=== PATIENT | female | born 1975 | race American Indian/Alaskan Native ===

== ENCOUNTER 2018-01-06 13:23 | Inpatient (IN) | payer MEDICARE, OTHER ==
[2018-01-06 16:10] VITALS: BMI 27.0
[2018-01-06 18:53] LABS: HEMOGLOBIN 10.4 g/dL (12.0-16.0); MEAN CELL VOLUME 96.4 fl (81.0-99.0); MEAN CORPUSCULAR HEMOGLOBIN 32.4 pg (27.0-31.0); MEAN CORPUSCULAR HGB CONC 33.6 g/dL (33.0-37.0); RBC 3.21 Mil/uL (3.80-5.20); RED CELL DISTRIBUTION WIDTH 12.4 % (11.5-14.5); WHITE BLOOD COUNT 10.4 K/uL (4.8-10.8)
[2018-01-06] MEDS ORDERED: Piperacillin/Tazobact 3.375 GM in Sodium Chloride 0.9% 100 ML IVPB SCH (19:00)
[2018-01-06 19:12] LABS: ALBUMIN 3.1 g/dL (3.5-5.0); ALT/SGPT 26 U/L (9-52); AST/SGOT 39 U/L (14-36); BLOOD UREA NITROGEN 10 mg/dl (7-17); CALCIUM 8.9 mg/dL (8.4-10.2); GFR AFRICAN-AMERICAN > 60; GFR NON-AFRICAN AMERICAN > 60
[2018-01-06] MEDS: Artificial Tears Opht Soln OU SCH (21:18)
[2018-01-06] MEDS: Piperacillin/Tazobact 3.375 GM in Sodium Chloride 0.9% 100 ML IVPB SCH (21:37)
[2018-01-06] MEDS: Insulin Lispro (humaLOG) 100 Units/ml Inj SC SCH (21:51)
[2018-01-06] MEDS: Insulin Detemir 100 Units/ml Inj SC SCH (21:52)
[2018-01-06] MEDS ORDERED: Piperacillin/Tazobact 3.375 gm Inj IVPB SCH (22:00)
[2018-01-06] MEDS ORDERED: Patient's Own Med (Insulin Glargine, Recombina [Lantus] 50 UNIT) SC SCH (22:00)
[2018-01-07] MEDS: Piperacillin/Tazobact 3.375 GM in Sodium Chloride 0.9% 100 ML IVPB SCH ×3 (06:12→21:52)
[2018-01-07] MEDS: Insulin Lispro (humaLOG) 100 Units/ml Inj SC SCH ×4 (07:08→23:11)
[2018-01-07] MEDS: Insulin Lispro Mix 75/25 100 units/ml (HumaLog) 10ml SC SCH ×2 (08:45→16:38)
[2018-01-07] MEDS: Artificial Tears Opht Soln OU SCH ×2 (08:45→21:48)
[2018-01-07] MEDS: Enoxaparin 40 mg Syringe SC SCH (08:46)
[2018-01-07] MEDS: Bacitracin OINT 15GM TOP PRN (08:46)
[2018-01-07] MEDS ORDERED: Saccharomyces Boulardi 250 mg Cap PO SCH (09:00)
--- NOTE | 2018-01-07 12:08 | CP.PCM.CON ---
History of Present Illness - History of Present Illness History of Present Illness: Pt is a 42 year old female admitted to [facility] and referred to the database report writer for evaluation. med history postive for a recent CVA. Med history also positive for DM, HTN, epilepsy, neuropathy. See medical record for complete medical history and list of medications. Social History: pt lives with her daughter 13. She has a son in [place] and one son "in custodial." Pt reported positive relationships with family. Pt also has a fiancee- in her life for 15+ years. Psych history denied, pt denied a history of alc/sub abuse. 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 MSE: Pt alert, oriented x3, relevant/coherent, no psychosis, pt spoke of initial depression with knowledge of CVA, discussed reduction of dysphoria with family support and positive messages, no si no hi ideation. Dx: Adjustment Dx Plan: Continued Sup therapy Past Patient History - Past Medical History & Family History Past Medical History?: Yes - Past Social History Smoking Status: Former Smoker - CARDIAC Other/Comment: QUESTIONABLE DVT LEG - PULMONARY Hx Asthma: Yes (asthma) - NEUROLOGICAL Hx Seizures: Yes (Epilepsy (last episode was 10/22/17)) Other/Comment: Admitting diagnosis: Acute CVA - HEENT Hx HEENT Problems: No Other/Comment: Glasses for near sightedness - RENAL Hx Chronic Kidney Disease: No - ENDOCRINE/METABOLIC Hx Diabetes Mellitus Type 2: Yes (Uncontrolled) - HEMATOLOGICAL/ONCOLOGICAL Hx Blood Disorders: No Hx AIDS: No Hx Human Immunodeficiency Virus (HIV): No - INTEGUMENTARY Hx Dermatological Problems: Yes Other/Comment: Abscess on labia. - MUSCULOSKELETAL/RHEUMATOLOGICAL Hx Falls: Yes (History of epilepsy (last episode 10/22/17)) - GASTROINTESTINAL Hx Gastrointestinal Disorders: No Other/Comment: Hernia (undiagnosed per pt.) - GENITOURINARY/GYNECOLOGICAL Hx Genitourinary Disorders: No - PSYCHIATRIC Hx Substance Use: No - SURGICAL HISTORY Hx Appendectomy: Yes (w/ gangrene) - ANESTHESIA Hx Anesthesia: Yes Hx Anesthesia Reactions: No Hx Malignant Hyperthermia: No Meds Allergies/Adverse Reactions: Allergies Allergy/AdvReac Type Severity Reaction Status Date / Time morphine Allergy NAUSEA Verified 01/06/18 16:14 - Medications Medications: Current Medications Amlodipine Besylate (Norvasc) 10 mg PO DAILY [facility] Last Admin: 01/07/18 08:47 Dose: 10 mg Artificial Tears (Artificial Tears) 1 drop OU Q12 [facility] Last Admin: 01/07/18 08:45 Dose: 1 drop Aspirin (Aspirin Chewable) 81 mg PO DAILY [facility] Last Admin: 01/07/18 08:45 Dose: 81 mg Atorvastatin Calcium (Lipitor) 10 mg PO [facility] Bacitracin (Bacitracin Oint) 1 applic TOP DAILY PRN PRN Reason: Apply on Left Labia Last Admin: 01/07/18 08:46 Dose: 1 applic Clopidogrel Bisulfate (Plavix) 75 mg PO DAILY [facility] Last Admin: 01/07/18 08:47 Dose: 75 mg Enoxaparin Sodium (Lovenox) 40 mg SC DAILY [facility] PRN Reason: Protocol Last Admin: 01/07/18 08:46 Dose: 40 mg Famotidine (Pepcid) 20 mg PO BID [facility] Last Admin: 01/07/18 08:47 Dose: 20 mg Gabapentin (Neurontin) 600 mg PO Q8 [facility] Last Admin: 01/07/18 06:24 Dose: 600 mg Hydromorphone HCl (Dilaudid) 0.5 mg IVP Q4 PRN PRN Reason: Pain, severe (8-10) Last Admin: 01/07/18 09:31 Dose: 0.5 mg Piperacillin Sod/Tazobactam (Sod 3.375 gm/ Sodium Chloride) 100 mls @ 100 mls/ hr IVPB Q8@0500,1300,2100 [facility] Last Admin: 01/07/18 06:12 Dose: 100 mls/hr Insulin Detemir (Levemir) 50 units SC [facility] Last Admin: 01/06/18 21:52 Dose: 50 units Insulin Human Lispro (Humalog) 0 units SC ACHS [facility] PRN Reason: Protocol Last Admin: 01/07/18 07:08 Dose: 2 units Insulin Lispro Protam/Lispro Human (Humalog Mix 75/25) 25 units SC BID [facility] Last Admin: 01/07/18 08:45 Dose: 25 units Levetiracetam (Keppra) 750 mg PO Q12 [facility] Last Admin: 01/07/18 08:46 Dose: 750 mg Lisinopril (Zestril) 10 mg PO DAILY [facility] Last Admin: 01/07/18 08:47 Dose: 10 mg Phenobarbital (Phenobarbital Tab) 60 mg PO TID [facility] Last Admin: 01/07/18 10:25 Dose: Not Given Saccharomyces Boulardii (Florastor) 250 mg PO DAILY [facility] Last Admin: 01/07/18 08:45 Dose: 250 mg Results - Vital Signs Recent Vital Signs: Last Vital Signs Temp 98.3 F 01/07/18 08:29 Pulse 89 01/07/18 08:47 Resp 20 01/07/18 08:29 BP 155/89 H 01/07/18 08:47 Pulse Ox 100 01/07/18 08:29 - Labs Result Diagrams: 01/06/18 18:28 01/06/18 18:28 Labs: Laboratory Results - last 24 hr 01/06/18 01/06/18 01/06/18 18:28 18:28 18:28 WBC 10.4 RBC 3.21 L Hgb 10.4 L Hct 30.9 L MCV 96.4 MCH 32.4 H MCHC 33.6 RDW 12.4 Plt Count 252 Sodium 137 Potassium 4.6 Chloride 104 Carbon Dioxide 28 Anion Gap 10 BUN 10 Creatinine 1.0 Est GFR ( Amer) > 60 Est GFR (Non-Af Amer) > 60 POC Glucose (mg/dL) Random Glucose 212 H Hemoglobin A1c 11.5 H Calcium 8.9 Total Bilirubin 0.3 AST 39 H D ALT 26 Alkaline Phosphatase 84 Total Protein 6.3 Albumin 3.1 L Globulin 3.2 Albumin/Globulin Ratio 1.0 01/06/18 01/07/18 01/07/18 21:07 06:30 11:44 WBC RBC Hgb Hct MCV MCH MCHC RDW Plt Count Sodium Potassium Chloride Carbon Dioxide Anion Gap BUN Creatinine Est GFR ( Amer) Est GFR (Non-Af Amer) POC Glucose (mg/dL) 250 H 159 H 54 L Random Glucose Hemoglobin A1c Calcium Total Bilirubin AST ALT Alkaline Phosphatase Total Protein Albumin Globulin Albumin/Globulin Ratio
--- NOTE | 2018-01-07 12:59 | CP.PCM.CON ---
History of Present Illness - History of Present Illness History of Present Illness: 42 y/o F with PMHx of DMI, seizures and newly diagnosed HTN, HLD s//p CVA Recently noticed a bump about on her left labia which was found to have abscess went to OR for I and D . Now in acute rehab for recent CVA ID requested for antibiotic management PMHx: DMI, grandmal seizures thyroid nodules- biopsy benign, probably goiter, no medication new onset HLD, new onset HTN PSurg: appendectomy Social: smokes cigarettes 1ppd x 15 years, denies ETOH, drugs Allergies: Morphine Home meds: Insulin Glargine 50 sc HS Novolog 70-30 25 u sc BID Gabapentin 600mg po TID Phenobarbital 60mg po TID Keppra 1 tab po BID Review of Systems - Review of Systems All systems: reviewed and no additional remarkable complaints except - Constitutional Constitutional: As Per HPI - EENT Eyes: absent: As Per HPI, Blind Spots, Blurred Vision, Change in Vision, Decreased Night Vision, Diplopia, Discharge, Dry Eye, Exophthalmos, Floaters, Irritation, Itchy Eyes, Loss of Peripheral Vision, Pain, Photophobia, Requires Corrective Lenses, Sees Flashes, Spots in Vision, Tunnel Vision, Other Visual Disturbances, Loss of Vision, Other Ears: absent: As Per HPI, Decreased Hearing, Ear Discharge, Ear Pain, Tinnitus, Abnormal Hearing, Disequilibrium, Dizziness, Other Nose/Mouth/Throat: absent: As Per HPI, Epistaxis, Nasal Congestion, Nasal Discharge, Nasal Obstruction, Nasal Trauma, Nose Pain, Post Nasal Drip, Sinus Pain, Sinus Pressure, Bleeding Gums, Change in Voice, Dental Pain, Dry Mouth, Dysphagia, Halitosis, Hoarsness, Lip Swelling, Mouth Lesions, Mouth Pain, Odynophagia, Sore Throat, Throat Swelling, Tongue Swelling, Facial Pain, Neck Pain, Neck Mass, Other - Breasts Breasts: absent: As Per HPI, Change in Shape, Mass, Pain, Nipple Discharge, Nipple Inversion, Skin Changes, Swelling, Other - Cardiovascular Cardiovascular: As Per HPI - Respiratory Respiratory: absent: As Per HPI, Cough, Dyspnea, Hemoptysis, Dyspnea on Exertion , Wheezing, Snoring, Stridor, Pain on Inspiration, Chest Congestion, Excessive Mucous Production, Change in Mucous Color, Pain with Coughing, Other - Gastrointestinal Gastrointestinal: absent: As Per HPI, Abdominal Pain, Belching, Bloating, Change in Bowel Habits, Change in Stool Character, Coffee Ground Emesis, Constipation, Cramping, Diarrhea, Dyspepsia, Dysphagia, Early Satiety, Excessive Flatus, Fecal Incontinence, Heartburn, Hematemesis, Hematochezia, Loose Stools, Melena, Nausea, Odynophagia, Temesmus, Vomiting, Other - Genitourinary Genitourinary: As Per HPI - Reproductive: Female Reproductive:Female: As Per HPI - Menstruation Menstruation: As Per HPI - Musculoskeletal Musculoskeletal: As Per HPI - Integumentary Integumentary: As Per HPI, Skin Pain, Wounds - Neurological Neurological: As Per HPI - Psychiatric Psychiatric: absent: As Per HPI, Abnormal Sleep Pattern, Anhedonia, Anxiety, Auditory Hallucinations, Behavioral Changes, Change in Appetite, Change in Libido, Confusion, Depression, Difficulty Concentrating, Hallucinations, Homicidal Ideation, Hopelessness, Irritability, Memory Loss, Mood Swings, Panic Attacks, Paranoia, Suicidal Ideation, Visual Hallucinations, Tactile Hallucinations, Other - Endocrine Endocrine: absent: As Per HPI, Change in Body Appearance, Change in Libido, Cold Intolorance, Deepening of Voice, Excessive Sweating, Fatigue, Flushing, Heat Intolorance, Increase in Ring/Shoe/Hat Size, Palpitations, Polydipsia, Polyphagia, Polyuria, Other - Hematologic/Lymphatic Hematologic: absent: As Per HPI, Easy Bleeding, Easy Bruising, Lymphadenopathy, Other Past Patient History - Past Medical History & Family History Past Medical History?: Yes - Past Social History Smoking Status: Former Smoker - CARDIAC Other/Comment: QUESTIONABLE DVT LEG - PULMONARY Hx Asthma: Yes (asthma) - NEUROLOGICAL Hx Seizures: Yes (Epilepsy (last episode was 10/22/17)) Other/Comment: Admitting diagnosis: Acute CVA - HEENT Hx HEENT Problems: No Other/Comment: Glasses for near sightedness - RENAL Hx Chronic Kidney Disease: No - ENDOCRINE/METABOLIC Hx Diabetes Mellitus Type 2: Yes (Uncontrolled) - HEMATOLOGICAL/ONCOLOGICAL Hx Blood Disorders: No Hx AIDS: No Hx Human Immunodeficiency Virus (HIV): No - INTEGUMENTARY Hx Dermatological Problems: Yes Other/Comment: Abscess on labia. - MUSCULOSKELETAL/RHEUMATOLOGICAL Hx Falls: Yes (History of epilepsy (last episode 10/22/17)) - GASTROINTESTINAL Hx Gastrointestinal Disorders: No Other/Comment: Hernia (undiagnosed per pt.) - GENITOURINARY/GYNECOLOGICAL Hx Genitourinary Disorders: No - PSYCHIATRIC Hx Substance Use: No - SURGICAL HISTORY Hx Appendectomy: Yes (w/ gangrene) - ANESTHESIA Hx Anesthesia: Yes Hx Anesthesia Reactions: No Hx Malignant Hyperthermia: No Meds Allergies/Adverse Reactions: Allergies Allergy/AdvReac Type Severity Reaction Status Date / Time morphine Allergy NAUSEA Verified 01/06/18 16:14 - Medications Medications: Current Medications Amlodipine Besylate (Norvasc) 10 mg PO DAILY [facility] Last Admin: 01/07/18 08:47 Dose: 10 mg Artificial Tears (Artificial Tears) 1 drop OU Q12 [facility] Last Admin: 01/07/18 08:45 Dose: 1 drop Aspirin (Aspirin Chewable) 81 mg PO DAILY [facility] Last Admin: 01/07/18 08:45 Dose: 81 mg Atorvastatin Calcium (Lipitor) 10 mg PO [facility] Bacitracin (Bacitracin Oint) 1 applic TOP DAILY PRN PRN Reason: Apply on Left Labia Last Admin: 01/07/18 08:46 Dose: 1 applic Clopidogrel Bisulfate (Plavix) 75 mg PO DAILY [facility] Last Admin: 01/07/18 08:47 Dose: 75 mg Enoxaparin Sodium (Lovenox) 40 mg SC DAILY [facility] PRN Reason: Protocol Last Admin: 01/07/18 08:46 Dose: 40 mg Famotidine (Pepcid) 20 mg PO BID [facility] Last Admin: 01/07/18 08:47 Dose: 20 mg Gabapentin (Neurontin) 600 mg PO Q8 [facility] Last Admin: 01/07/18 06:24 Dose: 600 mg Hydromorphone HCl (Dilaudid) 0.5 mg IVP Q4 PRN PRN Reason: Pain, severe (8-10) Last Admin: 01/07/18 09:31 Dose: 0.5 mg Piperacillin Sod/Tazobactam (Sod 3.375 gm/ Sodium Chloride) 100 mls @ 100 mls/ hr IVPB Q8@0500,1300,2100 [facility] Last Admin: 01/07/18 12:52 Dose: 100 mls/hr Insulin Detemir (Levemir) 50 units SC [facility] Last Admin: 01/06/18 21:52 Dose: 50 units Insulin Human Lispro (Humalog) 0 units SC ACHS [facility] PRN Reason: Protocol Last Admin: 01/07/18 12:38 Dose: Not Given Insulin Lispro Protam/Lispro Human (Humalog Mix 75/25) 25 units SC BID [facility] Last Admin: 01/07/18 08:45 Dose: 25 units Levetiracetam (Keppra) 750 mg PO Q12 [facility] Last Admin: 01/07/18 08:46 Dose: 750 mg Lisinopril (Zestril) 10 mg PO DAILY [facility] Last Admin: 01/07/18 08:47 Dose: 10 mg Phenobarbital (Phenobarbital Tab) 60 mg PO TID [facility] Last Admin: 01/07/18 10:25 Dose: Not Given Saccharomyces Boulardii (Florastor) 250 mg PO DAILY [facility] Last Admin: 01/07/18 08:45 Dose: 250 mg Physical Exam - Constitutional Appears: Non-toxic, Chronically Ill - Head Exam Head Exam: NORMOCEPHALIC - Eye Exam Eye Exam: PERRL. absent: Scleral icterus - ENT Exam ENT Exam: Mucous Membranes Dry, Normal External Ear Exam - Neck Exam Neck exam: Negative for: Lymphadenopathy - Respiratory Exam Respiratory Exam: Decreased Breath Sounds, Rhonchi - Cardiovascular Exam Cardiovascular Exam: REGULAR RHYTHM, +S1, +S2 - GI/Abdominal Exam GI & Abdominal Exam: Diminished Bowel Sounds, Soft. absent: Tenderness - Rectal Exam Rectal Exam: Deferred - Exam External exam: Erythema. absent: NORMAL EXTERNAL EXAM Additional comments: wound healing right labia no pus - Extremities Exam Extremities exam: Negative for: pedal edema - Back Exam Back exam: absent: CVA tenderness (L), CVA tenderness (R) - Neurological Exam Neurological exam: Alert, CN II-XII Intact, Motor Sensory Deficit, Oriented x3 Additional comments: left sided weakness + - Psychiatric Exam Psychiatric exam: Anxious - Skin Skin Exam: Dry Results - Vital Signs Recent Vital Signs: Last Vital Signs Temp 98.3 F 01/07/18 08:29 Pulse 89 01/07/18 08:47 Resp 20 01/07/18 08:29 BP 155/89 H 01/07/18 08:47 Pulse Ox 100 01/07/18 08:29 - Labs Result Diagrams: 01/09/18 07:50 01/09/18 07:50 Labs: Laboratory Results - last 24 hr 01/06/18 01/06/18 01/06/18 18:28 18:28 18:28 WBC 10.4 RBC 3.21 L Hgb 10.4 L Hct 30.9 L MCV 96.4 MCH 32.4 H MCHC 33.6 RDW 12.4 Plt Count 252 Sodium 137 Potassium 4.6 Chloride 104 Carbon Dioxide 28 Anion Gap 10 BUN 10 Creatinine 1.0 Est GFR ( Amer) > 60 Est GFR (Non-Af Amer) > 60 POC Glucose (mg/dL) Random Glucose 212 H Hemoglobin A1c 11.5 H Calcium 8.9 Total Bilirubin 0.3 AST 39 H D ALT 26 Alkaline Phosphatase 84 Total Protein 6.3 Albumin 3.1 L Globulin 3.2 Albumin/Globulin Ratio 1.0 01/06/18 01/07/18 01/07/18 21:07 06:30 11:44 WBC RBC Hgb Hct MCV MCH MCHC RDW Plt Count Sodium Potassium Chloride Carbon Dioxide Anion Gap BUN Creatinine Est GFR ( Amer) Est GFR (Non-Af Amer) POC Glucose (mg/dL) 250 H 159 H 54 L Random Glucose Hemoglobin A1c Calcium Total Bilirubin AST ALT Alkaline Phosphatase Total Protein Albumin Globulin Albumin/Globulin Ratio Assessment & Plan (1) Diabetes mellitus Status: Acute (2) Hypertension Status: Acute (3) Infected wound Status: Acute - Assessment and Plan (Free Text) Assessment: cont iv antibiotics for 7 days cont wound care surgical follow up PT/OT for stroke
[2018-01-07] MEDS: Saccharomyces Boulardi 250 mg Cap PO SCH (16:38)
--- NOTE | 2018-01-07 17:32 | CP.PCM.CON ---
History of Present Illness - History of Present Illness History of Present Illness: 42 yo woman recently transferred from [facility], s/p labia abscess I&D, and CVA, is referred for pain management. Patient has been asking for Dilaudid 0.5mg IV q4h AT[facility]. Patient has chronic pain before recent admission but was only on Neurontin 600mg q8h for diabetic neuropathy. She felt she no longer has any neurological deficits. Due to prolonged bed rest, she now has lower back, leg, and hip pain. She denies a previous substance/opioid abuse history. She had a reaction to Morphine 4 years ago, but it doesn't appear to be a true anaphylactic reaction. She has been tolerating Dilaudid IV fine. She insists on getting IV pain medication as it works faster and states that she wouldn't need any pain medication at home. It was explained to her that rationale to transition to PO medication but she insists on keeping the IV pain medication. Past Patient History - Past Medical History & Family History Past Medical History?: Yes - Past Social History Smoking Status: Former Smoker - CARDIAC Other/Comment: QUESTIONABLE DVT LEG - PULMONARY Hx Asthma: Yes (asthma) - NEUROLOGICAL Hx Seizures: Yes (Epilepsy (last episode was 10/22/17)) Other/Comment: Admitting diagnosis: Acute CVA - HEENT Hx HEENT Problems: No Other/Comment: Glasses for near sightedness - RENAL Hx Chronic Kidney Disease: No - ENDOCRINE/METABOLIC Hx Diabetes Mellitus Type 2: Yes (Uncontrolled) - HEMATOLOGICAL/ONCOLOGICAL Hx Blood Disorders: No Hx AIDS: No Hx Human Immunodeficiency Virus (HIV): No - INTEGUMENTARY Hx Dermatological Problems: Yes Other/Comment: Abscess on labia. - MUSCULOSKELETAL/RHEUMATOLOGICAL Hx Falls: Yes (History of epilepsy (last episode 10/22/17)) - GASTROINTESTINAL Hx Gastrointestinal Disorders: No Other/Comment: Hernia (undiagnosed per pt.) - GENITOURINARY/GYNECOLOGICAL Hx Genitourinary Disorders: No - PSYCHIATRIC Hx Substance Use: No - SURGICAL HISTORY Hx Appendectomy: Yes (w/ gangrene) - ANESTHESIA Hx Anesthesia: Yes Hx Anesthesia Reactions: No Hx Malignant Hyperthermia: No Meds Allergies/Adverse Reactions: Allergies Allergy/AdvReac Type Severity Reaction Status Date / Time morphine Allergy NAUSEA Verified 01/06/18 16:14 - Medications Medications: Current Medications Amlodipine Besylate (Norvasc) 10 mg PO DAILY [facility] Last Admin: 01/07/18 08:47 Dose: 10 mg Artificial Tears (Artificial Tears) 1 drop OU Q12 [facility] Last Admin: 01/07/18 08:45 Dose: 1 drop Aspirin (Aspirin Chewable) 81 mg PO DAILY [facility] Last Admin: 01/07/18 08:45 Dose: 81 mg Atorvastatin Calcium (Lipitor) 10 mg PO [facility] Bacitracin (Bacitracin Oint) 1 applic TOP DAILY PRN PRN Reason: Apply on Left Labia Last Admin: 01/07/18 08:46 Dose: 1 applic Clopidogrel Bisulfate (Plavix) 75 mg PO DAILY [facility] Last Admin: 01/07/18 08:47 Dose: 75 mg Enoxaparin Sodium (Lovenox) 40 mg SC DAILY [facility] PRN Reason: Protocol Last Admin: 01/07/18 08:46 Dose: 40 mg Famotidine (Pepcid) 20 mg PO BID [facility] Last Admin: 01/07/18 16:38 Dose: 20 mg Gabapentin (Neurontin) 600 mg PO Q8 [facility] Last Admin: 01/07/18 13:36 Dose: 600 mg Hydromorphone HCl (Dilaudid) 0.5 mg IVP Q4 PRN PRN Reason: Pain, severe (8-10) Last Admin: 01/07/18 13:36 Dose: 0.5 mg Piperacillin Sod/Tazobactam (Sod 3.375 gm/ Sodium Chloride) 100 mls @ 100 mls/ hr IVPB Q8@0500,1300,2100 [facility] Last Admin: 01/07/18 12:52 Dose: 100 mls/hr Insulin Detemir (Levemir) 50 units SC HS [facility] Last Admin: 01/06/18 21:52 Dose: 50 units Insulin Human Lispro (Humalog) 0 units SC ACHS [facility] PRN Reason: Protocol Last Admin: 01/07/18 16:32 Dose: Not Given Insulin Lispro Protam/Lispro Human (Humalog Mix 75/25) 25 units SC BID [facility] Last Admin: 01/07/18 16:38 Dose: 25 units Levetiracetam (Keppra) 750 mg PO Q12 [facility] Last Admin: 01/07/18 08:46 Dose: 750 mg Lisinopril (Zestril) 10 mg PO DAILY [facility] Last Admin: 01/07/18 08:47 Dose: 10 mg Phenobarbital (Phenobarbital Tab) 60 mg PO TID [facility] Last Admin: 01/07/18 16:38 Dose: 60 mg Saccharomyces Boulardii (Florastor) 250 mg PO BID [facility] Last Admin: 01/07/18 16:38 Dose: 250 mg Results - Vital Signs Recent Vital Signs: Last Vital Signs Temp 98.3 F 01/07/18 08:29 Pulse 89 01/07/18 08:47 Resp 20 01/07/18 08:29 BP 155/89 H 01/07/18 08:47 Pulse Ox 100 01/07/18 08:29 - Labs Result Diagrams: 01/06/18 18:28 01/06/18 18:28 Labs: Laboratory Results - last 24 hr 01/06/18 01/06/18 01/06/18 18:28 18:28 18:28 WBC 10.4 RBC 3.21 L Hgb 10.4 L Hct 30.9 L MCV 96.4 MCH 32.4 H MCHC 33.6 RDW 12.4 Plt Count 252 Sodium 137 Potassium 4.6 Chloride 104 Carbon Dioxide 28 Anion Gap 10 BUN 10 Creatinine 1.0 Est GFR ( Amer) > 60 Est GFR (Non-Af Amer) > 60 POC Glucose (mg/dL) Random Glucose 212 H Hemoglobin A1c 11.5 H Calcium 8.9 Total Bilirubin 0.3 AST 39 H D ALT 26 Alkaline Phosphatase 84 Total Protein 6.3 Albumin 3.1 L Globulin 3.2 Albumin/Globulin Ratio 1.0 01/06/18 01/07/18 01/07/18 21:07 06:30 11:44 WBC RBC Hgb Hct MCV MCH MCHC RDW Plt Count Sodium Potassium Chloride Carbon Dioxide Anion Gap BUN Creatinine Est GFR ( Amer) Est GFR (Non-Af Amer) POC Glucose (mg/dL) 250 H 159 H 54 L Random Glucose Hemoglobin A1c Calcium Total Bilirubin AST ALT Alkaline Phosphatase Total Protein Albumin Globulin Albumin/Globulin Ratio 01/07/18 16:00 WBC RBC Hgb Hct MCV MCH MCHC RDW Plt Count Sodium Potassium Chloride Carbon Dioxide Anion Gap BUN Creatinine Est GFR ( Amer) Est GFR (Non-Af Amer) POC Glucose (mg/dL) 109 Random Glucose Hemoglobin A1c Calcium Total Bilirubin AST ALT Alkaline Phosphatase Total Protein Albumin Globulin Albumin/Globulin Ratio Assessment & Plan - Assessment and Plan (Free Text) Assessment: 42 yo woman s/p labia abscess I&D, s/p recent TIA. - decrease IV Pain med to Dilaudid 0.5mg q8h PRN for severe pain - start Dilaudid 2mg PO q4h PRN for moderate pain - continue Neurontin - please reconsult PRN, patient doesn't need to be discharged on pain medications
[2018-01-07] MEDS: Insulin Detemir 100 Units/ml Inj SC SCH (23:11)
[2018-01-08] MEDS: Piperacillin/Tazobact 3.375 GM in Sodium Chloride 0.9% 100 ML IVPB SCH ×3 (04:37→21:54)
[2018-01-08] MEDS: Insulin Lispro (humaLOG) 100 Units/ml Inj SC SCH ×4 (07:05→22:01)
[2018-01-08] MEDS: Insulin Lispro Mix 75/25 100 units/ml (HumaLog) 10ml SC SCH (09:20)
[2018-01-08] MEDS: Bacitracin OINT 15GM TOP PRN (09:23)
[2018-01-08] MEDS: Artificial Tears Opht Soln OU SCH ×2 (09:25→21:53)
[2018-01-08] MEDS: Saccharomyces Boulardi 250 mg Cap PO SCH ×2 (09:25→17:38)
[2018-01-08] MEDS: Enoxaparin 40 mg Syringe SC SCH (09:28)
--- NOTE | 2018-01-08 15:44 | PCM.OPOC ---
Physiatry Overall Plan of Care - Overall Plan of Care Estimated Length of Stay in Weeks: 3 Rehab Impairment: Mobility, Gait, Balance, Coordination Etiologic Diagnosis: Cerebrovascular Accident - Anticipated Interventions Physical Therapy:: Yes Occupational Therapy:: Yes Speech Therapy:: Yes Recreational Therapy:: Yes - Therapy Goals Bed Mobility: Independent Ambulation: Independent Functional Positional Changes:: Independent - Functional Outcomes Functional Outcomes: Fair - Discharge Plan Identification of Barriers to Discharge: Cognition Discharge Destination: Home
--- NOTE | 2018-01-08 22:43 | PN ---
DATE: 01/08/2018 SUBJECTIVE: The patient is seen today 01/08/2018. PHYSICAL EXAMINATION: VITAL SIGNS: She is afebrile and blood pressure is 155/90, temperature 98.2, respiratory rate 20 and pulse 90. HEENT: Pupils equal, reactive to light. Normal-appearing mucosa of the conjunctivae, oropharynx and nasal membrane mucosa. NECK: Supple. No JVD. No carotid bruit. No lymph node. No thyromegaly. CHEST/LUNGS: Bilateral symmetrical expansion. Good air exchange. No rales, no rhonchi. CARDIOVASCULAR: PMI not localized, S1 and S2. No additional sounds. ABDOMEN: Normoactive bowel sounds. No tenderness. No organomegaly. No masses. EXTREMITIES: No cyanosis, no clubbing, no edema. LABORATORY ASST: Alert, awake, oriented x2. No neurological deficit could be appreciated. ASSESSMENT: 1. Status post drainage of an abscess. Currently on Zosyn. 2. Radiculopathy. 3. Peripheral neuropathy. 4. Uncontrolled type 2 diabetes mellitus. PLAN: Continue current medications and we will adjust the dose of insulin as the patient's blood sugar dropped to 48 today. Continue pain medications as per pain management. Clarence Goodwin MD
[2018-01-08] MEDS: Insulin Detemir 100 Units/ml Inj SC SCH (23:12)
[2018-01-09] MEDS: Piperacillin/Tazobact 3.375 GM in Sodium Chloride 0.9% 100 ML IVPB SCH ×3 (05:45→21:09)
[2018-01-09] MEDS: Insulin Lispro (humaLOG) 100 Units/ml Inj SC SCH ×4 (07:00→22:37)
[2018-01-09] MEDS: Artificial Tears Opht Soln OU SCH ×2 (08:33→21:07)
[2018-01-09] MEDS: Enoxaparin 40 mg Syringe SC SCH (08:33)
[2018-01-09] MEDS: Saccharomyces Boulardi 250 mg Cap PO SCH ×2 (08:34→17:35)
[2018-01-09] MEDS: Bacitracin OINT 15GM TOP PRN (08:37)
[2018-01-09 08:39] LABS: HEMOGLOBIN 9.2 g/dL (12.0-16.0); MEAN CELL VOLUME 96.9 fl (81.0-99.0); MEAN CORPUSCULAR HEMOGLOBIN 32.2 pg (27.0-31.0); MEAN CORPUSCULAR HGB CONC 33.2 g/dL (33.0-37.0); RBC 2.85 Mil/uL (3.80-5.20); RED CELL DISTRIBUTION WIDTH 12.7 % (11.5-14.5); WHITE BLOOD COUNT 10.7 K/uL (4.8-10.8)
[2018-01-09 08:53] LABS: BLOOD UREA NITROGEN 17 mg/dl (7-17); CALCIUM 8.5 mg/dL (8.4-10.2); GFR AFRICAN-AMERICAN > 60; GFR NON-AFRICAN AMERICAN > 60
--- NOTE | 2018-01-09 11:57 | CP.PCM.PN ---
Subjective - Date & Time of Evaluation Date of Evaluation: 01/08/18 Time of Evaluation: 08:40 - Subjective Subjective: no acute complaints at present Objective - Vital Signs/Intake and Output Vital Signs (last 24 hours): Temp Pulse Resp BP Pulse Ox 98.7 F 85 20 152/93 H 100 01/09/18 08:00 01/09/18 08:41 01/09/18 08:00 01/09/18 08:41 01/09/18 08:00 - Medications Medications: Current Medications Amlodipine Besylate (Norvasc) 10 mg PO DAILY [facility] Last Admin: 01/09/18 08:41 Dose: 10 mg Artificial Tears (Artificial Tears) 1 drop OU Q12 [facility] Last Admin: 01/09/18 08:33 Dose: 1 drop Aspirin (Aspirin Chewable) 81 mg PO DAILY [facility] Last Admin: 01/09/18 08:35 Dose: 81 mg Atorvastatin Calcium (Lipitor) 10 mg PO HS [facility] Last Admin: 01/08/18 21:53 Dose: 10 mg Bacitracin (Bacitracin Oint) 1 applic TOP DAILY PRN PRN Reason: Apply on Left Labia Last Admin: 01/09/18 08:37 Dose: 1 applic Clopidogrel Bisulfate (Plavix) 75 mg PO DAILY [facility] Last Admin: 01/09/18 08:36 Dose: 75 mg Enoxaparin Sodium (Lovenox) 40 mg SC DAILY [facility] PRN Reason: Protocol Last Admin: 01/09/18 08:33 Dose: 40 mg Famotidine (Pepcid) 20 mg PO BID [facility] Last Admin: 01/09/18 08:36 Dose: 20 mg Gabapentin (Neurontin) 600 mg PO Q8 [facility] Last Admin: 01/09/18 05:50 Dose: 600 mg Hydromorphone HCl (Dilaudid) 2 mg PO Q4 PRN PRN Reason: Pain, moderate (4-7) Last Admin: 01/09/18 09:25 Dose: 2 mg Hydromorphone HCl (Dilaudid) 0.5 mg IVP Q8 PRN PRN Reason: Pain, severe (8-10) Last Admin: 01/09/18 06:20 Dose: 0.5 mg Piperacillin Sod/Tazobactam (Sod 3.375 gm/ Sodium Chloride) 100 mls @ 100 mls/ hr IVPB Q8@0500,1300,2100 [facility] Last Admin: 01/09/18 05:45 Dose: 100 mls/hr Insulin Detemir (Levemir) 50 units SC HS [facility] Last Admin: 01/08/18 23:12 Dose: 50 units Insulin Human Lispro (Humalog) 0 units SC ACHS [facility] PRN Reason: Protocol Last Admin: 01/09/18 07:00 Dose: Not Given Levetiracetam (Keppra) 750 mg PO Q12 [facility] Last Admin: 01/09/18 08:34 Dose: 750 mg Lisinopril (Zestril) 10 mg PO DAILY [facility] Last Admin: 01/09/18 08:40 Dose: 10 mg Nicotine (Nicoderm Cq) 1 patch TD DAILY [facility] Last Admin: 01/09/18 08:35 Dose: 1 patch Phenobarbital (Phenobarbital Tab) 60 mg PO TID [facility] Last Admin: 01/09/18 08:52 Dose: 60 mg Saccharomyces Boulardii (Florastor) 250 mg PO BID [facility] Last Admin: 01/09/18 08:34 Dose: 250 mg Zolpidem Tartrate (Ambien) 5 mg PO PRN PRN Reason: Insomnia Last Admin: 01/08/18 23:11 Dose: 5 mg - Labs Labs: 01/09/18 07:50 01/09/18 07:50 - Head Exam Head Exam: ATRAUMATIC, NORMAL INSPECTION, NORMOCEPHALIC - Eye Exam Eye Exam: EOMI, Normal appearance Pupil Exam: NORMAL ACCOMODATION, PERRL - ENT Exam ENT Exam: Mucous Membranes Moist - Neck Exam Neck Exam: Normal Inspection - Respiratory Exam Respiratory Exam: Clear to Ausculation Bilateral, NORMAL BREATHING PATTERN - Cardiovascular Exam Cardiovascular Exam: REGULAR RHYTHM - GI/Abdominal Exam GI & Abdominal Exam: Soft, Normal Bowel Sounds - Rectal Exam Rectal Exam: NORMAL INSPECTION - Exam External exam: NORMAL EXTERNAL EXAM - Extremities Exam Extremities Exam: Full ROM, Normal Inspection - Back Exam Back Exam: NORMAL INSPECTION - Neurological Exam Neurological Exam: Alert, Awake Neuro motor strength exam: Left Upper Extremity: 3, Right Upper Extremity: 4, Left Lower Extremity: 3, Right Lower Extremity: 4 - Psychiatric Exam Psychiatric exam: Normal Affect Assessment and Plan (1) Abdominal pain Status: Acute (2) Back strain Status: Acute (3) Chest discomfort Status: Acute (4) Chest pain Status: Acute (5) Diabetes mellitus Status: Acute (6) Hyperglycemia Status: Acute (7) Hypertension Status: Acute (8) Infected wound Status: Acute - Assessment and Plan (Free Text) Assessment: Cva physical, occupational therapy program and pain mangement
--- NOTE | 2018-01-09 12:01 | CP.PCM.CON ---
History of Present Illness - History of Present Illness History of Present Illness: 42 year old female admitted with CVa (redictatting Review of Systems - Neurological Neurological: Abnormal Gait, Lack of Coordination Past Patient History - Past Medical History & Family History Past Medical History?: Yes - Past Social History Smoking Status: Former Smoker - CARDIAC Other/Comment: QUESTIONABLE DVT LEG - PULMONARY Hx Asthma: Yes (asthma) - NEUROLOGICAL Hx Seizures: Yes (Epilepsy (last episode was 10/22/17)) Other/Comment: Admitting diagnosis: Acute CVA - HEENT Hx HEENT Problems: No Other/Comment: Glasses for near sightedness - RENAL Hx Chronic Kidney Disease: No - ENDOCRINE/METABOLIC Hx Diabetes Mellitus Type 2: Yes (Uncontrolled) - HEMATOLOGICAL/ONCOLOGICAL Hx Blood Disorders: No Hx AIDS: No Hx Human Immunodeficiency Virus (HIV): No - INTEGUMENTARY Hx Dermatological Problems: Yes Other/Comment: Abscess on labia. - MUSCULOSKELETAL/RHEUMATOLOGICAL Hx Falls: Yes (History of epilepsy (last episode 10/22/17)) - GASTROINTESTINAL Hx Gastrointestinal Disorders: No Other/Comment: Hernia (undiagnosed per pt.) - GENITOURINARY/GYNECOLOGICAL Hx Genitourinary Disorders: No - PSYCHIATRIC Hx Substance Use: No - SURGICAL HISTORY Hx Appendectomy: Yes (w/ gangrene) - ANESTHESIA Hx Anesthesia: Yes Hx Anesthesia Reactions: No Hx Malignant Hyperthermia: No Meds Allergies/Adverse Reactions: Allergies Allergy/AdvReac Type Severity Reaction Status Date / Time morphine Allergy NAUSEA Verified 01/06/18 16:14 - Medications Medications: Current Medications Amlodipine Besylate (Norvasc) 10 mg PO DAILY [facility] Last Admin: 01/09/18 08:41 Dose: 10 mg Artificial Tears (Artificial Tears) 1 drop OU Q12 [facility] Last Admin: 01/09/18 08:33 Dose: 1 drop Aspirin (Aspirin Chewable) 81 mg PO DAILY [facility] Last Admin: 01/09/18 08:35 Dose: 81 mg Atorvastatin Calcium (Lipitor) 10 mg PO HS [facility] Last Admin: 01/08/18 21:53 Dose: 10 mg Bacitracin (Bacitracin Oint) 1 applic TOP DAILY PRN PRN Reason: Apply on Left Labia Last Admin: 01/09/18 08:37 Dose: 1 applic Clopidogrel Bisulfate (Plavix) 75 mg PO DAILY [facility] Last Admin: 01/09/18 08:36 Dose: 75 mg Enoxaparin Sodium (Lovenox) 40 mg SC DAILY [facility] PRN Reason: Protocol Last Admin: 01/09/18 08:33 Dose: 40 mg Famotidine (Pepcid) 20 mg PO BID [facility] Last Admin: 01/09/18 08:36 Dose: 20 mg Gabapentin (Neurontin) 600 mg PO Q8 [facility] Last Admin: 01/09/18 05:50 Dose: 600 mg Hydromorphone HCl (Dilaudid) 2 mg PO Q4 PRN PRN Reason: Pain, moderate (4-7) Last Admin: 01/09/18 09:25 Dose: 2 mg Hydromorphone HCl (Dilaudid) 0.5 mg IVP Q8 PRN PRN Reason: Pain, severe (8-10) Last Admin: 01/09/18 06:20 Dose: 0.5 mg Piperacillin Sod/Tazobactam (Sod 3.375 gm/ Sodium Chloride) 100 mls @ 100 mls/ hr IVPB Q8@0500,1300,2100 [facility] Last Admin: 01/09/18 05:45 Dose: 100 mls/hr Insulin Detemir (Levemir) 50 units SC HS [facility] Last Admin: 01/08/18 23:12 Dose: 50 units Insulin Human Lispro (Humalog) 0 units SC ACHS [facility] PRN Reason: Protocol Last Admin: 01/09/18 07:00 Dose: Not Given Levetiracetam (Keppra) 750 mg PO Q12 [facility] Last Admin: 01/09/18 08:34 Dose: 750 mg Lisinopril (Zestril) 10 mg PO DAILY [facility] Last Admin: 01/09/18 08:40 Dose: 10 mg Nicotine (Nicoderm Cq) 1 patch TD DAILY [facility] Last Admin: 01/09/18 08:35 Dose: 1 patch Phenobarbital (Phenobarbital Tab) 60 mg PO TID [facility] Last Admin: 01/09/18 08:52 Dose: 60 mg Saccharomyces Boulardii (Florastor) 250 mg PO BID [facility] Last Admin: 01/09/18 08:34 Dose: 250 mg Zolpidem Tartrate (Ambien) 5 mg PO HS PRN PRN Reason: Insomnia Last Admin: 01/08/18 23:11 Dose: 5 mg Physical Exam - Head Exam Head Exam: ATRAUMATIC, NORMAL INSPECTION, NORMOCEPHALIC - Eye Exam Eye Exam: EOMI, Normal appearance - ENT Exam ENT Exam: Mucous Membranes Moist, Normal Exam - Neck Exam Neck exam: Positive for: Normal Inspection - Respiratory Exam Respiratory Exam: Clear to Auscultation Bilateral, NORMAL BREATHING PATTERN - Cardiovascular Exam Cardiovascular Exam: REGULAR RHYTHM - GI/Abdominal Exam GI & Abdominal Exam: Normal Bowel Sounds - Rectal Exam Rectal Exam: NORMAL INSPECTION - Exam External exam: NORMAL EXTERNAL EXAM - Extremities Exam Extremities exam: Positive for: normal inspection - Back Exam Back exam: NORMAL INSPECTION - Neurological Exam Neurological exam: Alert, CN II-XII Intact Additional comments: probles with balance and strenght and coordination - Psychiatric Exam Psychiatric exam: Normal Affect, Normal Mood - Skin Skin Exam: Warm Results - Vital Signs Recent Vital Signs: Last Vital Signs Temp 98.7 F 01/09/18 08:00 Pulse 85 01/09/18 08:41 Resp 20 01/09/18 08:00 BP 152/93 H 01/09/18 08:41 Pulse Ox 100 01/09/18 08:00 - Labs Result Diagrams: 01/09/18 07:50 01/09/18 07:50 Labs: Laboratory Results - last 24 hr 01/08/18 01/08/18 01/09/18 16:30 20:58 06:38 WBC RBC Hgb Hct MCV MCH MCHC RDW Plt Count Sodium Potassium Chloride Carbon Dioxide Anion Gap BUN Creatinine Est GFR ( Amer) Est GFR (Non-Af Amer) POC Glucose (mg/dL) 112 H 119 H 118 H Random Glucose Calcium 01/09/18 01/09/18 07:50 07:50 WBC 10.7 RBC 2.85 L Hgb 9.2 L Hct 27.6 L MCV 96.9 MCH 32.2 H MCHC 33.2 RDW 12.7 Plt Count 250 Sodium 139 Potassium 4.3 Chloride 105 Carbon Dioxide 29 Anion Gap 9 L BUN 17 Creatinine 0.9 Est GFR ( Amer) > 60 Est GFR (Non-Af Amer) > 60 POC Glucose (mg/dL) Random Glucose 122 H Calcium 8.5 Assessment & Plan (1) Abdominal pain Status: Acute (2) Back strain Status: Acute (3) Chest discomfort Status: Acute (4) Chest pain Status: Acute (5) Diabetes mellitus Status: Acute (6) Hyperglycemia Status: Acute (7) Hypertension Status: Acute (8) Infected wound Status: Acute - Assessment and Plan (Free Text) Assessment: CVa plan for physical, occupational , speech and rec therapy pain treatment and asses wound infection
[2018-01-09] MEDS: Insulin Detemir 100 Units/ml Inj SC SCH (22:25)
[2018-01-10] MEDS: Piperacillin/Tazobact 3.375 GM in Sodium Chloride 0.9% 100 ML IVPB SCH (05:43)
[2018-01-10] MEDS: Insulin Lispro (humaLOG) 100 Units/ml Inj SC SCH ×4 (07:00→21:24)
--- NOTE | 2018-01-10 07:13 | CON ---
DATE: 01/07/2018 PHYSIATRY CONSULTATION The patient was seen at 11 o'clock in the morning. HISTORY OF PRESENT ILLNESS: The patient is a 42-year-old black female admitted to acute inpatient rehab program with a diagnosis of acute cerebrovascular accident with ICD code of 01.1. PAST MEDICAL HISTORY: Significant for hypertension, diabetes, medication noncompliance, diabetic neuropathy, anxiety and asthma. SOCIAL HISTORY: No history of drinking. Apparently, no history of smoking. The patient is denying history of substance abuse, but there is a history of tobacco use, so no ethanol use and no tobacco use according to the patient. ALLERGIES: MORPHINE. PRECAUTIONS: Seizure precautions. FUNCTIONAL STATUS: The patient was independent previously at home. Previously possible disability because of seizures. The patient admitted initially to the Emergency Room with problems of chest pain retrosternal with numbness and tingling. Also problems with vaginal abscess, which was drained. The patient had an MRI that showed infarction of the brain and acute inpatient rehab program. MEDICATIONS: As per medical physician. FUNCTIONAL STATUS: Independent. REVIEW OF SYSTEMS: The patient complains of left-sided weakness and generalized problems with discomfort when sitting. No other acute complaints at present. PHYSICAL EXAMINATION: VITAL SIGNS: Stable. NECK: Supple. CHEST: Symmetrical. HEART: Sounds S1 and S2. ABDOMEN: Benign. EXTREMITIES: No clubbing, cyanosis or edema. NEUROLOGIC: Short and long-term memory intact. Cranial nerves II through XII intact. Motor; both upper and both lower extremities. Toe normal range of motion is functional. Muscle strength is 3+. Sensation to pinprick and light touch intact. The patient with problems with [id number] and [id number] test, left-sided weaker than the right side. Deep tendon reflexes is 2+ bilaterally. Other systems are negative, except from pain in the vaginal area because of the vaginal abscess that was drained. IMPRESSION: Acute cerebrovascular accident, ICD code of 01.1, diabetes, hypertension, diabetic neuropathy, anxiety, asthma and seizure disorder. Estimated length of stay for this patient is 2 to 3 weeks. Anticipated discharge plan is go back to live at home with supportive services. TREATMENT PLAN FOR THE PATIENT: The patient to be independent for bed mobility, independent to supervision, functional positional changes, independent to supervision for simple transfers, supervision to contact guard for complex transfers, independent to supervision to ambulation with assisted devices, supervision to contact guard for elevation. Continue to do pain management on the patient and if need be may ask anesthesiologist for further pain management to monitor also skin and the area of the vaginal abscess drainage and for acute inpatient rehab program. Changing of medication discussed with the patient. Mitch Yanez MD
[2018-01-10] MEDS: Enoxaparin 40 mg Syringe SC SCH (08:07)
[2018-01-10] MEDS: Saccharomyces Boulardi 250 mg Cap PO SCH ×2 (08:08→17:01)
[2018-01-10] MEDS: Artificial Tears Opht Soln OU SCH ×2 (08:11→21:12)
--- NOTE | 2018-01-10 09:30 | HP ---
HISTORY OF PRESENT ILLNESS: The patient is a 42-year-old female with history of multiple medical problems who was admitted to acute rehabilitation after discharged from acute care in [facility]. The patient was initially admitted for weakness with intractable back pain with weakness on the left lower extremity and unsteadiness. The patient was treated in acute care and discharged to acute rehabilitation for further management. PAST MEDICAL HISTORY: Uncontrolled type 2 diabetes mellitus, hypertension, diabetic neuropathy, degenerative spine disease with radiculopathy, and history of seizure disorder on Keppra. SOCIAL HISTORY: Former smoker. No EtOH or substance abuse. FAMILY HISTORY: Noncontributory. MEDICATIONS: As per MAR. PHYSICAL EXAMINATION: GENERAL: The patient is in bed, comfortable, not in any cardiopulmonary distress. VITAL SIGNS: Blood pressure 136/80, temperature 97.9, respiratory rate 20, and pulse 90. HEENT: Pupils equal, reactive to light. Normal-appearing mucosa of the conjunctivae, oropharynx and nasal membrane mucosa. NECK: Supple. No JVD. No carotid bruit. No lymph node. No thyromegaly. CHEST AND LUNG: Bilateral symmetrical expansion. Good air exchange. No rales, no rhonchi. CARDIOVASCULAR: PMI not localized, S1 and S2. No additional sounds. ABDOMEN: Normoactive bowel sounds. No tenderness. No organomegaly. No masses. EXTREMITIES: No cyanosis, no clubbing, no edema. [employer] SUPERVISOR: Alert, awake, and oriented x3, and the patient has unsteadiness and slight left extremity weakness. ASSESSMENT: 1. Intractable back pain secondary to degenerative spine disease with possible radiculopathy. 2. Hypertension. 3. Type 2 diabetes mellitus, uncontrolled with hemoglobin A1c above 11. 4. Headache. PLAN: We will continue current medications and physical therapy, occupational therapy, and Accu-Cheks with insulin coverage. Clarence Goodwin MD
--- NOTE | 2018-01-10 11:51 | CP.PCM.PN ---
Subjective - Date & Time of Evaluation Date of Evaluation: 01/10/18 Time of Evaluation: 11:48 - Subjective Subjective: Ms. Faustin was seen and examined at the bedside. She is alert, oriented in all spheres. She denies any headache, blurred vision, diplopia, nausea. She is able to follow simple commands such as field accommodation, strength test, finger to nose test. She has a right arm PIC line and bilateral lower extremities jean stocking. Her recent phenobarbital level (01/03/2018) is 19.2. She further states that she has been on phenobarbital, gabapentin, and keppra for 10 years and under the care of DR. Hunter.She complains of pain in her I&D site. She is under the care of pain management. Objective - Vital Signs/Intake and Output Vital Signs (last 24 hours): Temp Pulse Resp BP Pulse Ox 97.7 F 83 19 117/77 99 01/10/18 09:50 01/10/18 09:50 01/10/18 09:50 01/10/18 09:50 01/10/18 09:50 - Medications Medications: Current Medications Amlodipine Besylate (Norvasc) 10 mg PO DAILY [facility] Last Admin: 01/10/18 08:10 Dose: 10 mg Artificial Tears (Artificial Tears) 1 drop OU Q12 [facility] Last Admin: 01/10/18 08:11 Dose: 1 drop Aspirin (Aspirin Chewable) 81 mg PO DAILY [facility] Last Admin: 01/10/18 08:07 Dose: 81 mg Atorvastatin Calcium (Lipitor) 10 mg PO HS [facility] Last Admin: 01/09/18 21:09 Dose: 10 mg Bacitracin (Bacitracin Oint) 1 applic TOP DAILY PRN PRN Reason: Apply on Left Labia Last Admin: 01/09/18 08:37 Dose: 1 applic Clopidogrel Bisulfate (Plavix) 75 mg PO DAILY [facility] Last Admin: 01/10/18 08:08 Dose: 75 mg Famotidine (Pepcid) 20 mg PO BID [facility] Last Admin: 01/10/18 08:11 Dose: 20 mg Gabapentin (Neurontin) 600 mg PO Q8 [facility] Last Admin: 01/10/18 05:48 Dose: 600 mg Hydromorphone HCl (Dilaudid) 2 mg PO Q4 PRN PRN Reason: Pain, moderate (4-7) Last Admin: 01/09/18 17:44 Dose: 2 mg Hydromorphone HCl (Dilaudid) 0.5 mg IVP Q8 PRN PRN Reason: Pain, severe (8-10) Last Admin: 01/10/18 06:27 Dose: 0.5 mg Piperacillin Sod/Tazobactam (Sod 3.375 gm/ Sodium Chloride) 100 mls @ 100 mls/ hr IVPB Q8@0500,1300,2100 [facility] Last Admin: 01/10/18 05:43 Dose: 100 mls/hr Insulin Detemir (Levemir) 50 units SC HS [facility] Last Admin: 01/09/18 22:25 Dose: 50 units Insulin Human Lispro (Humalog) 0 units SC [facility] PRN Reason: Protocol Last Admin: 01/10/18 07:00 Dose: Not Given Levetiracetam (Keppra) 750 mg PO Q12 [facility] Last Admin: 01/10/18 08:07 Dose: 750 mg Lisinopril (Zestril) 10 mg PO DAILY [facility] Last Admin: 01/10/18 08:08 Dose: 10 mg Nicotine (Nicoderm Cq) 1 patch TD DAILY [facility] Last Admin: 01/10/18 08:11 Dose: 1 patch Phenobarbital (Phenobarbital Tab) 60 mg PO Q8 [facility] Saccharomyces Boulardii (Florastor) 250 mg PO BID [facility] Last Admin: 01/10/18 08:08 Dose: 250 mg Zolpidem Tartrate (Ambien) 5 mg PO HS PRN PRN Reason: Insomnia Last Admin: 01/09/18 23:00 Dose: 5 mg - Labs Labs: 01/09/18 07:50 01/09/18 07:50 - Constitutional Appears: No Acute Distress - Head Exam Head Exam: NORMAL INSPECTION - Neurological Exam Neurological Exam: Alert, Awake, Oriented x3 Neuro motor strength exam: Left Upper Extremity: 4, Right Upper Extremity: 5, Left Lower Extremity: 4, Right Lower Extremity: 5 Additional comments: She is able to answer questions appropriately and follow simple commands. Sensation remains intact. Assessment and Plan (1) Seizure Assessment & Plan: Case discussed with Dr. Peraza, continue all current medical, physical, occupational therapies. With the level of pheobarbital within normal range, continue same dose for now.Recommend to see a neurologist as an outpatient post rehab. Status: Acute
--- NOTE | 2018-01-10 15:46 | CP.PCM.PCO ---
Physician Communication Note - Physician Communication Note Physician Communication Note: Attempted to d/c PICC line, resistance at 10cm, did not tag, IR consulted
[2018-01-10] MEDS: Oxycodone/Acetaminophen 5/325 mg Tab PO PRN ×2 (18:54→22:59)
[2018-01-10] MEDS: Insulin Detemir 100 Units/ml Inj SC SCH (21:19)
--- NOTE | 2018-01-10 23:25 | PN ---
DATE: 01/10/2018 SUBJECTIVE: She is not in any cardiopulmonary distress. PHYSICAL EXAMINATION: VITAL SIGNS: Blood pressure is not controlled, is 160/100, temperature 97.7, respiratory rate is 18 and pulse 94. HEENT: Pupils equal, reactive to light. Normal appearing mucosa of the conjunctivae, oropharynx and nasal membrane mucosa. NECK: Supple. No JVD. No carotid bruit. No lymph node. No thyromegaly. CHEST/LUNGS: Bilateral symmetrical expansion. Good air exchange. No rales, no rhonchi. CARDIOVASCULAR: PMI not localized. S1, S2. No additional sounds. ABDOMEN: Normoactive bowel sounds. No tenderness. No organomegaly. No masses. EXTREMITIES: No cyanosis, no clubbing, no edema. TAPEMAN: Alert, awake, oriented x2. No neurological deficit could be appreciated except for unsteady gait with slight weakness on the left upper and lower extremities. ASSESSMENT: 1. Cerebrovascular accident with left-sided weakness. 2. Degenerative spine disease with radiculopathy and unsteadiness. 3. Uncontrolled type 2 diabetes mellitus. 4. Hypertension. PLAN: We will add bisoprolol 5 mg daily. Continue current medications and we will discontinue IV antibiotics and the patient has already been more than 7 days post incision and drainage. Clarence Goodwin MD
[2018-01-11] MEDS: Insulin Lispro (humaLOG) 100 Units/ml Inj SC SCH ×4 (07:38→22:14)
[2018-01-11] MEDS: Artificial Tears Opht Soln OU SCH ×2 (08:30→22:11)
[2018-01-11] MEDS: Saccharomyces Boulardi 250 mg Cap PO SCH ×2 (08:31→17:14)
[2018-01-11] MEDS: Oxycodone/Acetaminophen 5/325 mg Tab PO PRN ×4 (12:52→22:19)
--- NOTE | 2018-01-11 20:56 | CP.PCM.PN ---
Subjective - Date & Time of Evaluation Date of Evaluation: 01/10/18 Time of Evaluation: 12:00 - Subjective Subjective: patient at times complains of pain in the vaginal area where she had the abscess drained Objective - Vital Signs/Intake and Output Vital Signs (last 24 hours): Temp Pulse Resp BP Pulse Ox 98.1 F 96 H 20 134/74 100 01/11/18 19:56 01/11/18 19:56 01/11/18 19:56 01/11/18 19:56 01/11/18 19:56 - Medications Medications: Current Medications Acetaminophen (Tylenol 325mg Tab) 650 mg PO Q6 PRN PRN Reason: Headache Last Admin: 01/10/18 17:00 Dose: 650 mg Amlodipine Besylate (Norvasc) 10 mg PO DAILY [facility] Last Admin: 01/11/18 08:30 Dose: 10 mg Artificial Tears (Artificial Tears) 1 drop OU Q12 [facility] Last Admin: 01/11/18 08:30 Dose: 1 drop Aspirin (Aspirin Chewable) 81 mg PO DAILY [facility] Last Admin: 01/11/18 08:31 Dose: 81 mg Atorvastatin Calcium (Lipitor) 10 mg PO HS [facility] Last Admin: 01/10/18 21:26 Dose: 10 mg Bacitracin (Bacitracin Oint) 1 applic TOP DAILY PRN PRN Reason: Apply on Left Labia Last Admin: 01/09/18 08:37 Dose: 1 applic Bisoprolol Fumarate (Zebeta) 5 mg PO 1700 [facility] Last Admin: 01/11/18 17:14 Dose: Not Given Clopidogrel Bisulfate (Plavix) 75 mg PO DAILY [facility] Last Admin: 01/11/18 08:31 Dose: 75 mg Famotidine (Pepcid) 20 mg PO BID [facility] Last Admin: 01/11/18 17:14 Dose: 20 mg Gabapentin (Neurontin) 600 mg PO Q8 [facility] Last Admin: 01/11/18 13:05 Dose: 600 mg Insulin Detemir (Levemir) 50 units SC HS [facility] Last Admin: 01/10/18 21:19 Dose: 50 units Insulin Human Lispro (Humalog) [address] [facility] PRN Reason: Protocol Last Admin: 01/11/18 17:17 Dose: Not Given Levetiracetam (Keppra) 750 mg PO Q12 [facility] Last Admin: 01/11/18 08:30 Dose: 750 mg Lisinopril (Zestril) 10 mg PO DAILY [facility] Last Admin: 01/11/18 08:31 Dose: 10 mg Nicotine (Nicoderm Cq) 1 patch TD DAILY [facility] Last Admin: 01/11/18 08:31 Dose: 1 patch Oxycodone/Acetaminophen (Percocet 5/325 Mg Tab) 1 tab PO Q4 PRN PRN Reason: Pain 4-10 Stop: 01/13/18 17:17 Last Admin: 01/11/18 17:13 Dose: 1 tab Phenobarbital (Phenobarbital Tab) 60 mg PO Q8 [facility] Last Admin: 01/11/18 13:04 Dose: 60 mg Saccharomyces Boulardii (Florastor) 250 mg PO BID [facility] Last Admin: 01/11/18 17:14 Dose: 250 mg Zolpidem Tartrate (Ambien) 5 mg PO HS PRN PRN Reason: Insomnia Last Admin: 01/10/18 22:59 Dose: 5 mg - Labs Labs: 01/09/18 07:50 01/09/18 07:50 - Head Exam Head Exam: ATRAUMATIC, NORMAL INSPECTION, NORMOCEPHALIC - Eye Exam Eye Exam: EOMI, Normal appearance Pupil Exam: NORMAL ACCOMODATION, PERRL - ENT Exam ENT Exam: Mucous Membranes Moist, Normal Exam - Neck Exam Neck Exam: Normal Inspection - Respiratory Exam Respiratory Exam: Clear to Ausculation Bilateral, NORMAL BREATHING PATTERN - Cardiovascular Exam Cardiovascular Exam: REGULAR RHYTHM - GI/Abdominal Exam GI & Abdominal Exam: Soft, Normal Bowel Sounds - Rectal Exam Rectal Exam: NORMAL INSPECTION - Exam External exam: NORMAL EXTERNAL EXAM Bimanual exam: NORMAL BIMANUAL EXAM - Extremities Exam Extremities Exam: Full ROM, Normal Inspection - Back Exam Back Exam: NORMAL INSPECTION - Neurological Exam Neurological Exam: Alert, Awake Neuro motor strength exam: Left Upper Extremity: 3, Right Upper Extremity: 3, Left Lower Extremity: 3, Right Lower Extremity: 3 Additional comments: balance and gait problems - Psychiatric Exam Psychiatric exam: Normal Affect, Normal Mood - Skin Skin Exam: Dry Assessment and Plan (1) Abdominal pain Status: Acute (2) Back strain Status: Acute (3) Chest discomfort Status: Acute (4) Chest pain Status: Acute (5) Diabetes mellitus Status: Acute (6) Hyperglycemia Status: Acute (7) Hypertension Status: Acute (8) Infected wound Status: Acute - Assessment and Plan (Free Text) Assessment: Cva plan to continue with physical, occupational, rec, speech therapy. Continue with pain management
[2018-01-11] MEDS: Insulin Detemir 100 Units/ml Inj SC SCH (22:14)
[2018-01-12] MEDS: Insulin Lispro (humaLOG) 100 Units/ml Inj SC SCH ×4 (07:00→21:46)
[2018-01-12] MEDS: Oxycodone/Acetaminophen 5/325 mg Tab PO PRN ×4 (08:44→20:55)
[2018-01-12] MEDS: Artificial Tears Opht Soln OU SCH ×2 (08:46→21:40)
[2018-01-12] MEDS: Saccharomyces Boulardi 250 mg Cap PO SCH ×2 (08:47→08:55)
--- NOTE | 2018-01-12 12:18 | PSY.TMCNF ---
Nursing - Vital Signs Vital Signs (Last 8 hours): Vital Signs 01/12/18 01/12/18 01/12/18 08:45 08:48 10:00 Temperature 98.4 F Pulse Rate 84 Respiratory 18 Rate Blood Pressure 134/63 137/82 137/82 Pain: 7 - Medications/Other Issues Comment: Pt at moderate nutritional risk. goals: 1. Pt to consume 75-100% of meals. 2. Pt to maintain fasting blood sugar between 70-130 mg/dL. 3. Pt to maintain post meal blood sugar under < 180 mg/dL. Follow-up due on 01/14/2018 - Bladder Management Bladder Pattern: Normal Voiding Method: Toilet - Bowel Management Bowel Pattern: Normal - Goals/Time Frame Comments: Pt was seen awake and alert laying in bed. Pt agreeable to visit. Pt was able to identify her leisure interests. Pt reported she does not like to watch television. Likes listening to music, spending time with daughter, and stated she is interested in doing more "lively" activities. Pt presented with increase fatigue 2' pain medication and reported she was tired. Pt stated that she would attend bingo if awake later in afternoon. Pt's mood was stable- positive. Pt presented with L side weakness. Physical Therapy - Bed Mobility Bed Mobility: Modified Independent - Transfers Wheelchair to Mat: Supervision Sit to Stand: Supervision - Ambulation Level of Assistance: Supervision Distance (ft.): 200 Assistive Devices: Single point cane, Rolling Walker - Stair Negotiation Stairs: Level of Assistance: Supervision, Verbal Cues Number of Stairs: 12 Handrails: Right Stairs: Assistive Devices: Right Handrail, Single point cane - Standing Balance Static Stand: Supervision Dynamic Stand: Contact Guard Assist - Pain Management Techniques: Medication, Position Change, Distraction, Inactivity - Insight/Carryover Insight/Carryover: Fair - Patient/Family Education Comment: Pt education provided for increased safety awareness and proper techniques during functional mobility training - Assessment/Plan Assessment: Patient is doing well and is progressing toward her stated goals . She currently CGA fo fucntional mobility and transfers (w/c,toilet, bed). Min A for lb self care w/o AD. supervision with AD for lb self care. Main limitations to therapy include pain in R abdomen and low back. Reccommend supervision for bathing and iadls. Reccommend outpatient OT/PT - Goals Timeframe: 3 weeks Goals: SIt < > supine (I). SIt < > stand mod I with SPC. Pt will ambulate 500 ft on even/uneven surfaces mod I with SPC. Pt will ascend/descend flight of stairs mod I with SPC and handrail - Provider License Number: [id number] Occupational Therapy - Arousal/Attention/Orientation Patient Orientation: Person, Place, Time, Appropriate to Age, Appropriate to Situation - ADL/IADL Self Feeding: Set-up Help Grooming: Set-up Help Bathing-Upper Extremity: Supervision Bathing-Lower Extremity: Minimal Assistance Dressing-Upper Extremity: Set-up Help Dressing-Lower Extremity: Minimal Assistance Homemaking: Minimal Assistance, Moderate Assistance - Sitting Balance Static Sitting: Independent without upper extremity support Dynamic Sitting: Requires supervision - Transfers Wheelchair to Bed Transfers: Contact Guard Toilet Transfers: Contact Guard Tub Transfers: Contact Guard - Upper Extremity Status Right Upper Extremity Comment: AROM WFL Left Upper Extremity Comment: AROM WFL, impaired strength in shoulders, wrists and digits - Pain Alleviating Techniques: Medication, Position Change, Distraction, Inactivity - Insight/Carryover Insight/Carryover: Fair - Patient/Family Education Comment: Pt education provided for increased safety awareness and proper techniques during functional mobility training - Assessment/Plan Assessment: Patient is doing well and is progressing toward her stated goals . She currently CGA fo fucntional mobility and transfers (w/c,toilet, bed). Min A for lb self care w/o AD. supervision with AD for lb self care. Main limitations to therapy include pain in R abdomen and low back. Reccommend supervision for bathing and iadls. Reccommend outpatient OT/PT - Goals Timeframe: 3 weeks Goals: SIt < > supine (I). SIt < > stand mod I with SPC. Pt will ambulate 500 ft on even/uneven surfaces mod I with SPC. Pt will ascend/descend flight of stairs mod I with SPC and handrail - Provider Therapist: MORENA Bradshaw/L Speech Therapy - Plan Assessment: Patient is doing well and is progressing toward her stated goals . She currently CGA fo fucntional mobility and transfers (w/c,toilet, bed). Min A for lb self care w/o AD. supervision with AD for lb self care. Main limitations to therapy include pain in R abdomen and low back. Reccommend supervision for bathing and iadls. Reccommend outpatient OT/PT Recreational Therapy - Participation Participation: Monitors His/Her Own Leisure Time - Attendance Attendance: Daily - Activities Leisure Activities: Television - Socialization Level of Socialization: Initiates/interacts freely with care givers and peer - Diversional Time Diversional Time: talking on phone, listening to music - Assessment Assessment/Plan: Patient is doing well and is progressing toward her stated goals . She currently CGA fo fucntional mobility and transfers (w/c,toilet, bed) . Min A for lb self care w/o AD. supervision with AD for lb self care. Main limitations to therapy include pain in R abdomen and low back. Reccommend supervision for bathing and iadls. Reccommend outpatient OT/PT - Provider Therapist: Maryanne Perez, [facility] #[id number] Nutrition - Current Diet Current Diet/ Supplement/ Feedings: moderate consistent CHO heart healthly diet - Appetite Percent Meal Consumed: 50-74% - Assessment/Goals/Time Frame Assessment/Goals/Time Frame: Pt at moderate nutritional risk. goals: 1. Pt to consume 75-100% of meals. 2. Pt to maintain fasting blood sugar between 70-130 mg/dL. 3. Pt to maintain post meal blood sugar under < 180 mg/dL. Follow-up due on 01/14/2018 - Provider Provider: Ifrah Cortez RD Case Management - Discharge Plan Discharge Plan: Home with significant other/family Rehabilitation Plan - Treatment Plan Treatment Plan: Physical Therapy, Occupational Therapy, Dietary, Patient/Family Education - Recommendation Recommendation: Physical Therapy, Occupational Therapy, Dietary, Patient/Family Education - Discharge Plan Discharge to: Home (Dc 20)
--- NOTE | 2018-01-12 13:01 | CP.PCM.PN ---
Subjective - Date & Time of Evaluation Date of Evaluation: 01/12/18 Time of Evaluation: 12:59 - Subjective Subjective: Ms. Faustin was seen and examined at the bedside. She is alert, oriented. She denies any headache, blurred vision, but claims of intermittent pain in the I & D area. She denies any discharge and she is being medicated with pain medicines. She denies any seizure activity. She is able to set her lunch tray and feed herself with left side weakness. There was no untoward events overnight. Objective - Vital Signs/Intake and Output Vital Signs (last 24 hours): Temp Pulse Resp BP Pulse Ox 98.4 F 84 18 137/82 100 01/12/18 10:00 01/12/18 10:00 01/12/18 10:00 01/12/18 10:00 01/11/18 19:56 - Medications Medications: Current Medications Acetaminophen (Tylenol 325mg Tab) 650 mg PO Q6 PRN PRN Reason: Headache Last Admin: 01/10/18 17:00 Dose: 650 mg Amlodipine Besylate (Norvasc) 10 mg PO DAILY [facility] Last Admin: 01/12/18 08:48 Dose: 10 mg Artificial Tears (Artificial Tears) 1 drop OU Q12 [facility] Last Admin: 01/12/18 08:46 Dose: 1 drop Aspirin (Aspirin Chewable) 81 mg PO DAILY [facility] Last Admin: 01/12/18 08:47 Dose: 81 mg Atorvastatin Calcium (Lipitor) 10 mg PO HS [facility] Last Admin: 01/11/18 22:12 Dose: 10 mg Bacitracin (Bacitracin Oint) 1 applic TOP DAILY PRN PRN Reason: Apply on Left Labia Last Admin: 01/09/18 08:37 Dose: 1 applic Clopidogrel Bisulfate (Plavix) 75 mg PO DAILY [facility] Last Admin: 01/12/18 08:47 Dose: 75 mg Famotidine (Pepcid) 20 mg PO BID [facility] Last Admin: 01/12/18 08:47 Dose: 20 mg Gabapentin (Neurontin) 600 mg PO Q8 [facility] Last Admin: 01/12/18 06:37 Dose: 600 mg Insulin Detemir (Levemir) 50 units SC HS [facility] Last Admin: 01/11/18 22:14 Dose: 50 units Insulin Human Lispro (Humalog) 0 units SC [facility] PRN Reason: Protocol Last Admin: 01/12/18 12:00 Dose: 2 units Levetiracetam (Keppra) 750 mg PO Q12 [facility] Last Admin: 01/12/18 08:47 Dose: 750 mg Lisinopril (Zestril) 10 mg PO DAILY [facility] Last Admin: 01/12/18 08:45 Dose: 10 mg Nicotine (Nicoderm Cq) 1 patch TD DAILY [facility] Last Admin: 01/12/18 08:47 Dose: 1 patch Oxycodone/Acetaminophen (Percocet 5/325 Mg Tab) 1 tab PO Q4 PRN PRN Reason: Pain 4-10 Stop: 01/13/18 17:17 Last Admin: 01/12/18 12:49 Dose: 1 tab Phenobarbital (Phenobarbital Tab) 60 mg PO Q8 [facility] Last Admin: 01/12/18 06:36 Dose: 60 mg Zolpidem Tartrate (Ambien) 5 mg PO HS PRN PRN Reason: Insomnia Last Admin: 01/11/18 22:19 Dose: 5 mg - Labs Labs: 01/09/18 07:50 01/09/18 07:50 - Constitutional Appears: No Acute Distress - Head Exam Head Exam: NORMAL INSPECTION - Neurological Exam Neurological Exam: Alert, Awake Neuro motor strength exam: Left Upper Extremity: 2/1, Right Upper Extremity: 5, Left Lower Extremity: 2/1, Right Lower Extremity: 5 Additional comments: Neurological uncahnged from previous examination. Assessment and Plan (1) Seizure Assessment & Plan: Case discussed with Dr. Peraza, continue all current medical, physical, occupational, and speech therapies. There is no new recommendations from neurology. Status: Acute
--- NOTE | 2018-01-12 14:28 | PN ---
DATE: PHYSIATRY PROGRESS NOTE SUBJECTIVE: The patient is feeling fine. Complains of pain at present. PHYSICAL EXAMINATION: VITAL SIGNS: Stable. NECK: Supple. CHEST: Symmetrical. HEART: Sounds S1 and S2. ABDOMEN: Abdominal area is benign. EXTREMITIES: No clubbing, cyanosis or edema. IMPRESSION AND PLAN: Acute cerebrovascular accident, diabetes, hypertension, anxiety, asthma, status post team conference for the patient. Continue with physical therapy, occupational therapy, and recreational therapy. Discussed discharge planning for the patient, discharge is for 01/15/2018, the patient is agreeable. Mitch Yanez MD
[2018-01-12] MEDS: Insulin Detemir 100 Units/ml Inj SC SCH (22:00)
--- NOTE | 2018-01-12 23:36 | PN ---
DAILY PROGRESS NOTE DATE: 01/12/2018 SUBJECTIVE: The patient is seen today on 01/12/2018. She is cooperative with physical therapy and occupational therapy. PHYSICAL EXAMINATION VITAL SIGNS: Blood pressure is 137/82, temperature 98.4, respiratory rate 18 and pulse 90. HEENT: Pupils equal and reactive to light. Normal-appearing mucosa of the conjunctivae, oropharynx and nasal membrane mucosa. NECK: Supple. No JVD. No carotid bruit. No lymph node. No thyromegaly. CHEST AND LUNGS: Bilateral symmetrical expansion. Good air exchange. No rales, no rhonchi. CARDIOVASCULAR: PMI not localized. S1 and S2. No additional sounds. ABDOMEN: Normoactive bowel sounds. No tenderness. No organomegaly. No masses. EXTREMITIES: No cyanosis, no clubbing, no edema. AIRLINE TICKET AGENT: Alert, awake and oriented x2. There is left-sided weakness. ASSESSMENT: 1. Cerebrovascular accident with left-sided weakness. 2. Back pain with radiculopathy. 3. Type 2 diabetes mellitus, uncontrolled. 4. Hypertension. 5. Hypercholesterolemia. PLAN: Continue current medications and physical therapy and occupational therapy and continue with insulin coverage as needed. Clarence Goodwin MD
[2018-01-13] MEDS: Insulin Lispro (humaLOG) 100 Units/ml Inj SC SCH ×4 (08:02→21:09)
[2018-01-13] MEDS: Artificial Tears Opht Soln OU SCH ×2 (09:04→21:02)
[2018-01-13] MEDS: Oxycodone/Acetaminophen 5/325 mg Tab PO PRN ×4 (09:08→22:31)
--- NOTE | 2018-01-13 11:21 | CP.PCM.PN ---
Subjective - Date & Time of Evaluation Date of Evaluation: 01/13/18 Time of Evaluation: 11:17 - Subjective Subjective: Ms. Faustin was seen and examined at the bedside. She is alert, oriented. She states of experiencing frequest bowel movements, but denies any watery stool. According to staff, the stool was soft and formed. The patient further states of not able to drink any fluids, encouraged to drink fluids to prevent her from getting dehydration which could trigger seizure. She verbalizes understanding. She further states of experiencing generalized pain last night which she a medicated and with relief.There was no untoward events overnight. Objective - Vital Signs/Intake and Output Vital Signs (last 24 hours): Temp Pulse Resp BP Pulse Ox 98.1 F 93 H 20 127/76 99 01/13/18 08:00 01/13/18 09:05 01/13/18 08:00 01/13/18 09:05 01/13/18 08:00 - Medications Medications: Current Medications Acetaminophen (Tylenol 325mg Tab) 650 mg PO Q6 PRN PRN Reason: Headache Last Admin: 01/10/18 17:00 Dose: 650 mg Amlodipine Besylate (Norvasc) 10 mg PO DAILY [facility] Last Admin: 01/13/18 09:05 Dose: 10 mg Artificial Tears (Artificial Tears) 1 drop OU Q12 [facility] Last Admin: 01/13/18 09:04 Dose: 1 drop Aspirin (Aspirin Chewable) 81 mg PO DAILY [facility] Last Admin: 01/13/18 09:06 Dose: 81 mg Atorvastatin Calcium (Lipitor) 10 mg PO [facility] Last Admin: 01/12/18 21:41 Dose: 10 mg Bacitracin (Bacitracin Oint) 1 applic TOP DAILY [facility] PRN Reason: Apply on Left Labia Last Admin: 01/09/18 08:37 Dose: 1 applic Clopidogrel Bisulfate (Plavix) 75 mg PO DAILY [facility] Last Admin: 01/13/18 09:06 Dose: 75 mg Famotidine (Pepcid) 20 mg PO BID [facility] Last Admin: 01/13/18 09:05 Dose: 20 mg Gabapentin (Neurontin) 600 mg PO Q8 [facility] Last Admin: 01/13/18 06:05 Dose: 600 mg Insulin Detemir (Levemir) 50 units SC [facility] Last Admin: 01/12/18 22:00 Dose: 50 units Insulin Human Lispro (Humalog) 0 units SC [facility] PRN Reason: Protocol Last Admin: 01/13/18 08:02 Dose: Not Given Levetiracetam (Keppra) 750 mg PO Q12 [facility] Last Admin: 01/13/18 09:04 Dose: 750 mg Lisinopril (Zestril) 10 mg PO DAILY [facility] Last Admin: 01/13/18 09:04 Dose: 10 mg Nicotine (Nicoderm Cq) 1 patch TD DAILY [facility] Last Admin: 01/13/18 09:03 Dose: 1 patch Oxycodone/Acetaminophen (Percocet 5/325 Mg Tab) 1 tab PO Q4 PRN PRN Reason: Pain 4-10 Stop: 01/13/18 17:17 Last Admin: 01/13/18 09:08 Dose: 1 tab Phenobarbital (Phenobarbital Tab) 60 mg PO Q8 [facility] Last Admin: 01/13/18 06:05 Dose: 60 mg Zolpidem Tartrate (Ambien) 5 mg PO HS PRN PRN Reason: Insomnia Last Admin: 01/11/18 22:19 Dose: 5 mg - Labs Labs: 01/09/18 07:50 01/09/18 07:50 - Constitutional Appears: No Acute Distress - Head Exam Head Exam: NORMAL INSPECTION - Neurological Exam Neurological Exam: Alert, Awake, Oriented x3 Neuro motor strength exam: Left Upper Extremity: 5, Right Upper Extremity: 2/1, Left Lower Extremity: 5, Right Lower Extremity: 2/1 Additional comments: Neurological unchanged from previous examination. Assessment and Plan (1) Seizure Assessment & Plan: Case discussed with Dr. Peraza, continue all current medical, physical, occupational therapies. Recommend to monitor the consistency of her stool and refer to her primary physician. Status: Acute
[2018-01-13] MEDS: Insulin Detemir 100 Units/ml Inj SC SCH (21:09)
[2018-01-14] MEDS: Insulin Lispro (humaLOG) 100 Units/ml Inj SC SCH ×4 (06:38→22:05)
[2018-01-14] MEDS: Artificial Tears Opht Soln OU SCH ×2 (08:15→22:04)
[2018-01-14] MEDS: Oxycodone/Acetaminophen 5/325 mg Tab PO PRN ×4 (08:23→22:17)
[2018-01-14 09:04] VITALS: RESP 20
--- NOTE | 2018-01-14 09:28 | CP.PCM.CON ---
History of Present Illness - History of Present Illness History of Present Illness: Pt seen for supportive therapy 8:40-9. Pt discussed discharge home tomorrow and looking forward to the above. Pt spoke of absence of depression at present , absence of anxiety, spoke of positive treatment by others and postive care recieved. Pt coping well. Past Patient History - Past Medical History & Family History Past Medical History?: Yes - Past Social History Smoking Status: Former Smoker - CARDIAC Other/Comment: QUESTIONABLE DVT LEG - PULMONARY Hx Asthma: Yes (asthma) - NEUROLOGICAL Hx Seizures: Yes (Epilepsy (last episode was 10/22/17)) Other/Comment: Admitting diagnosis: Acute CVA - HEENT Hx HEENT Problems: No Other/Comment: Glasses for near sightedness - RENAL Hx Chronic Kidney Disease: No - ENDOCRINE/METABOLIC Hx Diabetes Mellitus Type 2: Yes (Uncontrolled) - HEMATOLOGICAL/ONCOLOGICAL Hx Blood Disorders: No Hx AIDS: No Hx Human Immunodeficiency Virus (HIV): No - INTEGUMENTARY Hx Dermatological Problems: Yes Other/Comment: Abscess on labia. - MUSCULOSKELETAL/RHEUMATOLOGICAL Hx Falls: Yes (History of epilepsy (last episode 10/22/17)) - GASTROINTESTINAL Hx Gastrointestinal Disorders: No Other/Comment: Hernia (undiagnosed per pt.) - GENITOURINARY/GYNECOLOGICAL Hx Genitourinary Disorders: No - PSYCHIATRIC Hx Substance Use: No - SURGICAL HISTORY Hx Appendectomy: Yes (w/ gangrene) - ANESTHESIA Hx Anesthesia: Yes Hx Anesthesia Reactions: No Hx Malignant Hyperthermia: No Meds Allergies/Adverse Reactions: Allergies Allergy/AdvReac Type Severity Reaction Status Date / Time morphine Allergy NAUSEA Verified 01/06/18 16:14 - Medications Medications: Current Medications Acetaminophen (Tylenol 325mg Tab) 650 mg PO Q6 PRN PRN Reason: Headache Last Admin: 01/10/18 17:00 Dose: 650 mg Amlodipine Besylate (Norvasc) 10 mg PO DAILY [facility] Last Admin: 01/14/18 08:16 Dose: 10 mg Artificial Tears (Artificial Tears) 1 drop OU Q12 [facility] Last Admin: 01/14/18 08:15 Dose: 1 drop Aspirin (Aspirin Chewable) 81 mg PO DAILY [facility] Last Admin: 01/14/18 08:15 Dose: 81 mg Atorvastatin Calcium (Lipitor) 10 mg PO HS [facility] Last Admin: 01/13/18 21:01 Dose: 10 mg Bacitracin (Bacitracin Oint) 1 applic TOP DAILY [facility] PRN Reason: Apply on Left Labia Last Admin: 01/09/18 08:37 Dose: 1 applic Clopidogrel Bisulfate (Plavix) 75 mg PO DAILY [facility] Last Admin: 01/14/18 08:17 Dose: 75 mg Famotidine (Pepcid) 20 mg PO BID [facility] Last Admin: 01/14/18 08:17 Dose: 20 mg Gabapentin (Neurontin) 600 mg PO Q8 [facility] Last Admin: 01/14/18 06:12 Dose: 600 mg Insulin Detemir (Levemir) 50 units SC HS [facility] Last Admin: 01/13/18 21:09 Dose: 50 units Insulin Human Lispro (Humalog) 0 units SC [facility] PRN Reason: Protocol Last Admin: 01/14/18 06:38 Dose: Not Given Levetiracetam (Keppra) 750 mg PO Q12 [facility] Last Admin: 01/14/18 08:15 Dose: 750 mg Lisinopril (Zestril) 10 mg PO DAILY [facility] Last Admin: 01/14/18 08:18 Dose: 10 mg Nicotine (Nicoderm Cq) 1 patch TD DAILY [facility] Last Admin: 01/14/18 08:17 Dose: 1 patch Oxycodone/Acetaminophen (Percocet 5/325 Mg Tab) 1 tab PO Q4 PRN PRN Reason: pain 4-10. Stop: 01/16/18 18:11 Last Admin: 01/14/18 08:23 Dose: 1 tab Phenobarbital (Phenobarbital Tab) 60 mg PO Q8 [facility] Last Admin: 01/14/18 06:12 Dose: 60 mg Zolpidem Tartrate (Ambien) 5 mg PO HS PRN PRN Reason: Insomnia Last Admin: 01/11/18 22:19 Dose: 5 mg Results - Vital Signs Recent Vital Signs: Last Vital Signs Temp 97.5 F L 01/14/18 09:04 Pulse 91 H 01/14/18 09:04 Resp 20 01/14/18 09:04 BP 128/72 01/14/18 09:04 Pulse Ox 97 01/14/18 09:04 - Labs Result Diagrams: 01/09/18 07:50 01/09/18 07:50 Labs: Laboratory Results - last 24 hr 01/13/18 01/13/18 01/13/18 11:22 16:04 21:07 POC Glucose (mg/dL) 106 133 H 200 H 01/14/18 06:12 POC Glucose (mg/dL) 83
--- NOTE | 2018-01-14 11:16 | CP.PCM.PN ---
Subjective - Date & Time of Evaluation Date of Evaluation: 01/14/18 Time of Evaluation: 11:13 - Subjective Subjective: Ms. Faustin was seen and examined at the bedside. She is alert, oriented in all spheres. She claims of experiencing leg pain and dizziness earlier which was medicated and extra food was given with relief.Her vital signs during that incident was BP 128/72, HR 91, RR 18, Temp 97.6, sa02 98% room air. BS 62 mg.dl Her vital She denies any headache, dizziness, nausea, or vomiting. She is able to follow commands. Objective - Vital Signs/Intake and Output Vital Signs (last 24 hours): Temp Pulse Resp BP Pulse Ox 97.5 F L 91 H 20 128/72 97 01/14/18 09:04 01/14/18 09:04 01/14/18 09:04 01/14/18 09:04 01/14/18 09:04 - Medications Medications: Current Medications Acetaminophen (Tylenol 325mg Tab) 650 mg PO Q6 PRN PRN Reason: Headache Last Admin: 01/10/18 17:00 Dose: 650 mg Amlodipine Besylate (Norvasc) 10 mg PO DAILY [facility] Last Admin: 01/14/18 08:16 Dose: 10 mg Artificial Tears (Artificial Tears) 1 drop OU Q12 [facility] Last Admin: 01/14/18 08:15 Dose: 1 drop Aspirin (Aspirin Chewable) 81 mg PO DAILY [facility] Last Admin: 01/14/18 08:15 Dose: 81 mg Atorvastatin Calcium (Lipitor) 10 mg PO HS [facility] Last Admin: 01/13/18 21:01 Dose: 10 mg Bacitracin (Bacitracin Oint) 1 applic TOP DAILY PRN PRN Reason: Apply on Left Labia Last Admin: 01/09/18 08:37 Dose: 1 applic Clopidogrel Bisulfate (Plavix) 75 mg PO DAILY [facility] Last Admin: 01/14/18 08:17 Dose: 75 mg Famotidine (Pepcid) 20 mg PO BID [facility] Last Admin: 01/14/18 08:17 Dose: 20 mg Gabapentin (Neurontin) 600 mg PO Q8 [facility] Last Admin: 01/14/18 06:12 Dose: 600 mg Insulin Detemir (Levemir) 50 units SC [facility] Last Admin: 01/13/18 21:09 Dose: 50 units Insulin Human Lispro (Humalog) 0 units SC ACHS [facility] PRN Reason: Protocol Last Admin: 01/14/18 06:38 Dose: Not Given Levetiracetam (Keppra) 750 mg PO Q12 [facility] Last Admin: 01/14/18 08:15 Dose: 750 mg Lisinopril (Zestril) 10 mg PO DAILY [facility] Last Admin: 01/14/18 08:18 Dose: 10 mg Nicotine (Nicoderm Cq) 1 patch TD DAILY [facility] Last Admin: 01/14/18 08:17 Dose: 1 patch Oxycodone/Acetaminophen (Percocet 5/325 Mg Tab) 1 tab PO Q4 PRN PRN Reason: pain 4-10. Stop: 01/16/18 18:11 Last Admin: 01/14/18 08:23 Dose: 1 tab Phenobarbital (Phenobarbital Tab) 60 mg PO Q8 [facility] Last Admin: 01/14/18 06:12 Dose: 60 mg Zolpidem Tartrate (Ambien) 5 mg PO HS PRN PRN Reason: Insomnia Last Admin: 01/11/18 22:19 Dose: 5 mg - Labs Labs: 01/09/18 07:50 01/09/18 07:50 - Constitutional Appears: No Acute Distress - Head Exam Head Exam: NORMAL INSPECTION - Neurological Exam Neurological Exam: Alert, Awake Neuro motor strength exam: Left Upper Extremity: 5, Right Upper Extremity: 2/1, Left Lower Extremity: 5, Right Lower Extremity: 2/1 Additional comments: Neurological unchanged from previous examination. Assessment and Plan (1) Seizure Assessment & Plan: Case discussed with Dr. Peraza, continue all current medical, physical, and occupational therapies. Recommend to follow up with an outpatient neurologist to monitor her seizure and medications. She prefers Dr. Park which is closer to her house.If she change her mind, she could follow up with Dr. Peraza at [address] [place] [address] Status: Acute
[2018-01-14] MEDS ORDERED: Cholestyramine 4 gm/Pkt UD PO PRN (11:27)
--- NOTE | 2018-01-14 18:25 | PN ---
PHYSIATRY PROGRESS NOTE DATE: SUBJECTIVE: The patient is doing fine. The patient will be discharged tomorrow. No acute complaints at present. PHYSICAL EXAMINATION: VITAL SIGNS: Stable. NECK: Supple. CHEST: Symmetrical. HEART: Sounds S1 and S2. ABDOMEN: Abdominal area is benign. EXTREMITIES: No clubbing, cyanosis or edema. IMPRESSION: Acute cerebrovascular accident, diabetes, hypertension, and asthma. PLAN: Physical therapy, occupational therapy, full range of motion, strengthening, transfers, ambulation, and gait training. Discussed outpatient therapy for the patient and pain management and follow up with the medical physician along with equipment needs at home. Discharge for the . Mitch Yanez MD
--- NOTE | 2018-01-14 22:19 | PN ---
DAILY PROGRESS NOTE DATE: 01/14/2018 SUBJECTIVE: The patient is seen today 01/14/2018. She is not in any cardiopulmonary distress. The patient is doing better. OBJECTIVE: VITAL SIGNS: Blood pressure 128/72, temperature 97.5, respiratory rate 20, and pulse 90. HEENT: Pupils equal and reactive to light. Normal-appearing mucosa of the conjunctivae, oropharynx, and nasal membrane mucosa. NECK: Supple. No JVD. No carotid bruit. No lymph node. No thyromegaly. CHEST AND LUNGS: Bilateral symmetrical expansion. Good air exchange. No rales. No rhonchi. CARDIOVASCULAR: PMI not localized. S1 and S2. No additional sounds. ABDOMEN: Normoactive bowel sounds. No tenderness. No organomegaly. No masses. EXTREMITIES: No cyanosis. No clubbing. No edema. NEON MOLDER: Alert, awake, and oriented x3 and the patient has slight left-sided weakness. ASSESSMENT: Cerebrovascular accident with left-sided weakness; type 2 diabetes mellitus, uncontrolled; hypertension. PLAN: Continue current medications including double antiplatelet therapy. Continue physical therapy. We will send stool for C. diff as the patient is complaining of frequent bowel movements and then we will give the patient Questran b.i.d. p.r.n. for loose bowel movement. Clarence Goodwin MD
[2018-01-14] MEDS: Insulin Detemir 100 Units/ml Inj SC SCH (22:25)
[2018-01-15] MEDS: Oxycodone/Acetaminophen 5/325 mg Tab PO PRN ×2 (07:31→11:41)
[2018-01-15] MEDS: Insulin Lispro (humaLOG) 100 Units/ml Inj SC SCH ×2 (07:33→11:30)
[2018-01-15] MEDS: Artificial Tears Opht Soln OU SCH (08:58)
[2018-01-15 09:01] VITALS: PULSE 95
[2018-01-15 09:31] VITALS: BP 141/81; TEMP 98; O2SAT 100
--- NOTE | 2018-01-16 23:50 | DS ---
REASON FOR ADMISSION: This is a 42-year-old female with history of uncontrolled type 2 diabetes mellitus, who was admitted to acute rehabilitation floor after sustaining a cerebrovascular accident with left-sided weakness. COURSE OF HOSPITALIZATION: The patient was admitted to acute rehab at [facility]. The patient was continued on her medications including antihypertensive, diabetic and statin. The patient also was continued on IV antibiotics for few days due to the status post drainage of an abscess. The patient did well and she was discharged home in a stable condition to follow with her primary care physician, Dr. Ophelia Hunter. FINAL DIAGNOSES: 1. Status post cerebrovascular accident with left-sided weakness. 2. Hypertension. 3. Type 2 diabetes mellitus. 4. Anemia of chronic disease. 5. Degenerative spine disease with chronic back pain. The patient was advised to continue her current medications that she was on during the hospitalization and follow with Dr. Hunter next week for further workup of the anemia as well as continue followup with outpatient physical therapy and management of uncontrolled type 2 diabetes mellitus. [facility] MD [facility] # [id number]
== END 2018-01-15 15:11 | disposition home or self-care (01) | DRG 57 ==
PROVIDERS: ADMIT Internal Medicine; ATTEND Internal Medicine
PROC: F08Z1FZ Dressing Techniques Treatment using Assistive, Adaptive, Supportive or Protective Equipment (ICD-10-PCS; principal; 2018-01-06)
PROC: F08Z0FZ Bathing/Showering Techniques Treatment using Assistive, Adaptive, Supportive or Protective Equipment (ICD-10-PCS; 2018-01-06)
PROC: F07Z9FZ Gait Training/Functional Ambulation Treatment using Assistive, Adaptive, Supportive or Protective Equipment (ICD-10-PCS; 2018-01-06)
PROC: F07L6FZ Therapeutic Exercise Treatment of Musculoskeletal System - Lower Back / Lower Extremity using Assistive, Adaptive, Supportive or Protective Equipment (ICD-10-PCS; 2018-01-06)
DX: I69.354 Hemiplegia and hemiparesis following cerebral infarction affecting left non-dominant side (principal); E11.42 Type 2 diabetes mellitus with diabetic polyneuropathy; E11.65 Type 2 diabetes mellitus with hyperglycemia; F41.9 Anxiety disorder, unspecified; G40.909 Epilepsy, unspecified, not intractable, without status epilepticus; G89.29 Other chronic pain; J45.909 Unspecified asthma, uncomplicated; F43.20 Adjustment disorder, unspecified; Z88.5 Allergy status to narcotic agent; I10 Essential (primary) hypertension; D63.8 Anemia in other chronic diseases classified elsewhere; E78.5 Hyperlipidemia, unspecified; R51 Headache; Z87.891 Personal history of nicotine dependence; E78.00 Pure hypercholesterolemia, unspecified; M54.10 Radiculopathy, site unspecified